=== PATIENT | female | born 1985 | race Two or more races ===

== ENCOUNTER 2020-07-17 21:38 | Emergency (ER) | payer SELFPAY ==
[~2020-07-17] VITALS: Ht 157.5 cm; Wt 68.0 kg
--- NOTE | 2020-07-17 21:38 | NUR ---
ED Nurse Note: BROUGHT IN BY LAFBrett RA 59 AND [employer] FROM [facility]. PT WAS FOUND BY PD LYING DOWN ON THE STRE[address]. PT NOT ON A HOLD. DENIES SI OR HARM TO OTHERS. VSS, NAD, AAOX4, AMBULATORY
[2020-07-17 21:40] VITALS: BP 124/84
--- NOTE | 2020-07-17 21:40 | NUR ---
ED Nurse Note: PT LEFT WITHOUT BEING SEEN. PT AMBULATED OUT OF THE ED IN STEADY GAIT
[2020-07-17 22:01] VITALS: BP 124/84
== END 2020-07-17 21:40 | disposition left against medical advice (07) ==
LOC: EDBD 21:38 → EMR 21:40
DX: F91.9 Conduct disorder, unspecified (principal); Z53.21 Procedure and treatment not carried out due to patient leaving prior to being seen by health care provider